=== PATIENT | male | born 1945 | race Caucasian/White ===

== ENCOUNTER 2017-01-02 09:00 | Outpatient (RCR) | payer MEDICARE, OTHER ==
[~2017-01-02 09:00] MED LIST: ADVAIR 250/28 DISKU1 IH; ALAVERT10 M1 PO; ALBUTEROL0.83 MG/ML IH; ALLEGRA180 MG PO; ALLEGRA30 MG PO; AMOXICILLIN875 MG PO; ASPIRIN 32325 MG/TAB PO; ASPIRIN 81M81 MG/TA2 PO; ASPIRIN E.C. 8181 MG PO; ATENOLOL25 MG PO; BENADRYL25 M2 PO; BYSTOLIC5 MG PO; CALCIUM600 M2 PO; FLOVENT 110MCG7.9 GM IH; HYTRIN 2MG CAPSU2 MG PO; IMDUR 60MG60 MG/TAB PO; ISOSORBIDE MONO30 M1 PO; K-DUR 2020 MEQ PO; LEVAQUIN 5500 MG/TA1 PO; LIPITOR 10MG10 MG PO; LIPITOR 40MG TA40 MG PO; MULTIPLE VITAMI1 TA1 PO; NEXIUM40 MG PO; NITROSTAT0.4 MG/TAB SL; NORVASC 10MG10 MG PO; NORVASC 5MG5 MG/TAB PO; NORVASC2.5 MG PO; PLAVIX 75MG TAB75 MG PO; PREDNISONE10 MG PO; PROVENTIL0.09 MG/A1 IH; RELION VEN0.09 MG/Ac IH; RT ADVAIR 228 DISKUS IH; RT SPIRIVA18 MCG IH; SINGULAIR 110 MG/TAB PO; SINGULAIR10 MG PO; SODIUM BICARB PO; SPIRIVA18 MCG IH; SPORANOX100 MG PO; ST. JOSEPH81 M2 PO; TENORMIN 2525 MG/TAB PO; TOPROL XL 25MG25 MG PO; TRIAMTERENE/HCT1 TAB PO; TYLENOL 325MG325 MG PO; VIAGRA100 MG PO; ZYRTEC 10MG10 MG PO
== END 2017-01-02 12:00 | disposition home or self-care (01) ==
LOC: WSPT 09:00 → WSC 09:00
DX: M54.5 Low back pain (principal)
CPT/HCPCS: G8978-GP; G8979-GP; G8980-GP

== ENCOUNTER → 2018-01-07 | Outpatient (CLI) | payer MEDICARE, OTHER ==
[2018-01-07 11:23] LABS: BASO % 0.1 % (0.0-2.0); EOS % 0.5 % (0-4.0); HEMATOCRIT 39.6 % (42.0-52.0); HEMOGLOBIN 13.5 g/dl (13.5-18.0); LYMPH % 12.9 % (20.0-51.0); MEAN CELL VOLUME 96 fl (80.0-100.0); MEAN CORPUSCULAR HEMOGLOBIN 33 pg (27.0-31.0); MEAN CORPUSCULAR HGB CONC 34 g/dl (33.0-37.0); MEAN PLATELET VOLUME 11.6 fl (7.4-10.4); MONO # 0.4 (0.1-0.6); MONO % 5.8 % (1.7-9.3); PLATELET COUNT 119 K/mm3 (130-400); RED BLOOD COUNT 4.11 M/mm3 (4.20-5.60); REDCELL DISTRIBUTION WIDTH-CV 13.3 % (11.5-14.5)
[2018-01-07 11:44] LABS: BILIRUBIN,TOTAL 0.5 mg/dL (0.0-1.0); CALCIUM 9.1 mg/dL (8.4-10.2); CREATININE, serum 0.91 mg/dL (0.66-1.25); POTASSIUM 4.2 mmol/L (3.4-5.0); TOTAL PROTEIN 7.2 gm/dL (6.4-8.2)
== END ==
LOC: COL.LAB 10:57
PROVIDERS: Nurse Practitioner Family
DX: J44.1 Chronic obstructive pulmonary disease with (acute) exacerbation (principal)

== ENCOUNTER → 2018-05-13 | Outpatient (CLI) | payer MEDICARE, OTHER ==
[2018-05-13 13:49] LABS: BASO % 0.3 % (0.0-2.0); EOS # 0.2 (0.0-0.7); EOS % 2.9 % (0-4.0); GRAN # 3.7 (1.4-6.5); GRAN % 58.8 % (42.2-75.2); HEMATOCRIT 41.4 % (42.0-52.0); HEMOGLOBIN 14.2 g/dl (13.5-18.0); LYMPH # 1.8 (1.2-3.4); LYMPH % 28.4 % (20.0-51.0); MEAN CELL VOLUME 96 fl (80.0-100.0); MEAN CORPUSCULAR HEMOGLOBIN 33 pg (27.0-31.0); MEAN CORPUSCULAR HGB CONC 34 g/dl (33.0-37.0); MEAN PLATELET VOLUME 12.3 fl (7.4-10.4); MONO # 0.6 (0.1-0.6); MONO % 9.4 % (1.7-9.3); PLATELET COUNT 157 K/mm3 (130-400); RED BLOOD COUNT 4.31 M/mm3 (4.20-5.60); REDCELL DISTRIBUTION WIDTH-CV 12.1 % (11.5-14.5)
[2018-05-13 14:00] LABS: ALANINE AMINOTRANSFERASE 26 U/L (21-72); ALBUMIN 4.3 gm/dL (3.5-5.0); ALKALINE PHOSPHATASE 81 U/L (50-136); AMYLASE 73 U/L (30-110); ANION GAP 11 mmol/L (7-16); AST,SGOT 27 U/L (15-37); BILIRUBIN,TOTAL 0.4 mg/dL (0.0-1.0); BLOOD UREA NITROGEN 21 mg/dL (9-20); CALCIUM 9.1 mg/dL (8.4-10.2); CARBON DIOXIDE 29 mmol/L (22-30); CHLORIDE 98 mmol/L (98-107); CREATININE, serum 0.85 mg/dL (0.66-1.25); GLUCOSE 89 mg/dL (74-106); LIPASE 50 U/L (23-300); POTASSIUM 4.4 mmol/L (3.4-5.0); SODIUM 138 mmol/L (137-145); TOTAL PROTEIN 7.4 gm/dL (6.4-8.2)
[2018-05-13 14:01] LABS: C-REACTIVE PROTEIN < 0.5 mg/dL (0.0-0.9)
[2018-05-13 14:16] LABS: ERYTHROCYTE SEDIMENTATION RATE 7 mm/hr (0-30)
== END ==
LOC: COL.LAB 11:34
PROVIDERS: Family Medicine
DX: R10.30 Lower abdominal pain, unspecified (principal)

== ENCOUNTER → 2018-05-13 | Outpatient (CLI) | payer MEDICARE, OTHER | LOC: COL.RAD 13:44 | DX: R10.30 Lower abdominal pain, unspecified (principal); Z98.890 Other specified postprocedural states | CPT/HCPCS: Q9967 ==

== ENCOUNTER → 2019-01-29 | Outpatient (CLI) | payer MEDICARE, OTHER | LOC: MHCPAIN 07:46 | DX: G89.29 Other chronic pain (principal); M47.817 Spondylosis without myelopathy or radiculopathy, lumbosacral region; M54.16 Radiculopathy, lumbar region; M53.3 Sacrococcygeal disorders, not elsewhere classified; M96.1 Postlaminectomy syndrome, not elsewhere classified | CPT/HCPCS: G0463 ==

== ENCOUNTER → 2019-01-30 | Outpatient (CLI) | payer MEDICARE, OTHER ==
[2019-01-30 12:28] LABS: HEMOGLOBIN 14.8 g/dl (13.5-18.0); MEAN CELL VOLUME 98 fl (80.0-100.0); MEAN CORPUSCULAR HEMOGLOBIN 33 pg (27.0-31.0); MEAN CORPUSCULAR HGB CONC 34 g/dl (33.0-37.0); MEAN PLATELET VOLUME 12.1 fl (7.4-10.4); PLATELET COUNT 167 K/mm3 (130-400); RED BLOOD COUNT 4.51 M/mm3 (4.20-5.60); REDCELL DISTRIBUTION WIDTH-CV 12.6 % (11.5-14.5)
[2019-01-30 12:37] LABS: CALCIUM 9.5 mg/dL (8.4-10.2); CREATININE, serum 1.12 (0.66-1.25); POTASSIUM 4.8 mmol/L (3.4-5.0)
== END ==
LOC: COL.RAD 11:54
PROVIDERS: Internal Medicine Interventional Cardiology
DX: J18.9 Pneumonia, unspecified organism (principal)

== ENCOUNTER → 2019-02-06 | Outpatient (CLI) | payer MEDICARE, OTHER | LOC: MHCPAIN 08:26 | DX: M47.817 Spondylosis without myelopathy or radiculopathy, lumbosacral region (principal); M54.16 Radiculopathy, lumbar region | CPT/HCPCS: J1100; Q9967 ==

== ENCOUNTER → 2019-02-12 | Outpatient (CLI) | payer MEDICARE, OTHER | LOC: COL.VAS 07:23 | DX: M71.22 Synovial cyst of popliteal space [Baker], left knee (principal); M79.89 Other specified soft tissue disorders ==

== ENCOUNTER → 2019-02-18 | Outpatient (CLI) | payer MEDICARE, OTHER | LOC: MHCPAIN 10:15 | DX: G89.29 Other chronic pain (principal); M47.817 Spondylosis without myelopathy or radiculopathy, lumbosacral region; M54.16 Radiculopathy, lumbar region; M53.3 Sacrococcygeal disorders, not elsewhere classified; M96.1 Postlaminectomy syndrome, not elsewhere classified | CPT/HCPCS: G0463 ==

== ENCOUNTER → 2019-02-18 | Outpatient (CLI) | payer MEDICARE, OTHER | LOC: COL.RAD 10:49 | DX: M43.16 Spondylolisthesis, lumbar region (principal); M96.1 Postlaminectomy syndrome, not elsewhere classified; M47.816 Spondylosis without myelopathy or radiculopathy, lumbar region; I70.0 Atherosclerosis of aorta ==

== ENCOUNTER → 2019-02-24 | Outpatient (CLI) | payer MEDICARE, OTHER | LOC: MHCPAIN 10:32 | DX: M47.817 Spondylosis without myelopathy or radiculopathy, lumbosacral region (principal); M54.16 Radiculopathy, lumbar region | CPT/HCPCS: J1100; Q9967 ==

== ENCOUNTER 2019-02-26 13:45 | Outpatient (RCR) | payer MEDICARE, OTHER | END 2019-02-26 14:53 | disposition home or self-care (01) | LOC: WSPT 13:45 | DX: M54.16 Radiculopathy, lumbar region (principal); Z98.890 Other specified postprocedural states ==

== ENCOUNTER → 2019-03-11 | Outpatient (CLI) | payer MEDICARE, OTHER | LOC: MHCPAIN 07:51 | DX: G89.29 Other chronic pain (principal); M47.817 Spondylosis without myelopathy or radiculopathy, lumbosacral region; M54.16 Radiculopathy, lumbar region; M53.3 Sacrococcygeal disorders, not elsewhere classified; M96.1 Postlaminectomy syndrome, not elsewhere classified | CPT/HCPCS: G0463 ==

== ENCOUNTER → 2019-03-13 | Outpatient (CLI) | payer MEDICARE, OTHER | LOC: MHCPAIN 13:30 | DX: M47.817 Spondylosis without myelopathy or radiculopathy, lumbosacral region (principal); M54.16 Radiculopathy, lumbar region | CPT/HCPCS: J1100; Q9967 ==

== ENCOUNTER → 2019-03-19 | Outpatient (CLI) | payer MEDICARE, OTHER | LOC: MHCPAIN 08:03 | DX: G89.29 Other chronic pain (principal); M47.817 Spondylosis without myelopathy or radiculopathy, lumbosacral region; M54.16 Radiculopathy, lumbar region; M53.3 Sacrococcygeal disorders, not elsewhere classified; M96.1 Postlaminectomy syndrome, not elsewhere classified | CPT/HCPCS: G0463 ==

== ENCOUNTER 2019-03-25 09:59 | Outpatient (CLI) | payer MEDICARE, OTHER ==
[2019-03-25] VITALS (8 sets, daily range): BP systolic 113–136; BP diastolic 62–88; PULSE 60–78
[~2019-03-25] VITALS: Ht 172.7 cm; Wt 74.7 kg
[2019-03-25] MEDS ORDERED: NEURONTIN300 MG/CAP PO (10:15)
[2019-03-25] MEDS ORDERED: GLUCOPHAGE500 MG/TAB PO (10:15)
--- NOTE | 2019-03-25 13:38 | NUR ---
Discharge instructions given to pt.pt verbalizes understanding.Pt escorted out by this nurse.
== END 2019-03-25 14:10 | disposition home or self-care (01) ==
LOC: COL.RAD 09:59
DX: M51.27 Other intervertebral disc displacement, lumbosacral region (principal); M46.86 Other specified inflammatory spondylopathies, lumbar region; Z98.1 Arthrodesis status
CPT/HCPCS: Q9965

== ENCOUNTER → 2019-05-27 | Outpatient (CLI) | payer MEDICARE, OTHER ==
[~2019-05-27] MED LIST changes: +GLUCOPHAGE500 MG/TAB PO; +NEURONTIN300 MG/CAP PO
== END ==
LOC: MHCPAIN 08:18
DX: G89.29 Other chronic pain (principal); M47.817 Spondylosis without myelopathy or radiculopathy, lumbosacral region; M54.16 Radiculopathy, lumbar region; M53.3 Sacrococcygeal disorders, not elsewhere classified; M96.1 Postlaminectomy syndrome, not elsewhere classified
CPT/HCPCS: G0463

== ENCOUNTER 2019-11-14 20:09 | Emergency (ER) | payer MEDICARE, OTHER ==
[~2019-11-14] VITALS: Ht 172.7 cm; Wt 89.1 kg
[2019-11-14 21:39] VITALS: BP 138/78; PULSE 79; TEMP 98.4
== END 2019-11-14 21:37 | disposition home or self-care (01) ==
LOC: COL.ER 20:09
DX: R04.0 Epistaxis (principal); Z79.02 Long term (current) use of antithrombotics/antiplatelets; Z79.51 Long term (current) use of inhaled steroids; Z79.84 Long term (current) use of oral hypoglycemic drugs; Z79.82 Long term (current) use of aspirin

== ENCOUNTER 2019-11-16 03:44 | Emergency (ER) | payer MEDICARE, OTHER ==
[~2019-11-16] VITALS: Ht 172.7 cm; Wt 89.1 kg
[2019-11-16 04:11] VITALS: BP 127/87; TEMP 98
[2019-11-16 06:05] VITALS: PULSE 67
== END 2019-11-16 06:05 | disposition home or self-care (01) ==
LOC: COL.ER 03:44
DX: R04.0 Epistaxis (principal); I25.10 Atherosclerotic heart disease of native coronary artery without angina pectoris; I10 Essential (primary) hypertension; J44.9 Chronic obstructive pulmonary disease, unspecified; Z79.02 Long term (current) use of antithrombotics/antiplatelets; Z79.84 Long term (current) use of oral hypoglycemic drugs; Z79.82 Long term (current) use of aspirin; Z79.51 Long term (current) use of inhaled steroids

== ENCOUNTER 2019-11-19 20:50 | Emergency (ER) | payer MEDICARE, OTHER ==
[~2019-11-19] VITALS: Ht 172.7 cm; Wt 88.2 kg
[2019-11-19 23:00] VITALS: BP 133/88; PULSE 76; TEMP 98.4
== END 2019-11-19 23:15 | disposition home or self-care (01) ==
LOC: COL.ER 20:50
DX: R04.0 Epistaxis (principal)

== ENCOUNTER 2019-12-03 15:28 | Inpatient (IN) | payer MEDICARE, OTHER ==
[2019-12-03] VITALS (51 sets, daily range): BP systolic 143; BP diastolic 87; PULSE 104; TEMP 97.5; O2SAT 66–100
[~2019-12-03] VITALS: Ht 172.7 cm; Wt 90.0 kg
[2019-12-03 16:15] LABS: BASO % 0.7 % (0.0-2.0); EOS # 0.2 (0.0-0.7); EOS % 4.3 % (0-4.0); GRAN # 2.2 (1.4-6.5); GRAN % 49.6 % (42.2-75.2); HEMATOCRIT 43.5 % (42.0-52.0); HEMOGLOBIN 14.4 g/dl (13.5-18.0); LYMPH # 1.4 (1.2-3.4); LYMPH % 31.6 % (20.0-51.0); MEAN CELL VOLUME 98 fl (80.0-100.0); MEAN CORPUSCULAR HEMOGLOBIN 32 pg (27.0-31.0); MEAN CORPUSCULAR HGB CONC 33 g/dl (33.0-37.0); MEAN PLATELET VOLUME 12.1 fl (7.4-10.4); MONO # 0.6 (0.1-0.6); MONO % 13.6 % (1.7-9.3); PLATELET COUNT 188 K/mm3 (130-400); RED BLOOD COUNT 4.44 M/mm3 (4.20-5.60); REDCELL DISTRIBUTION WIDTH-CV 13.2 % (11.5-14.5)
[2019-12-03 16:28] LABS: ALANINE AMINOTRANSFERASE 19 U/L (4-49); ALBUMIN 4.9 gm/dL (3.5-5.0); ALKALINE PHOSPHATASE 110 U/L (50-136); ANION GAP 14 mmol/L (7-16); AST,SGOT 27 U/L (15-37); BILIRUBIN,TOTAL 0.6 mg/dL (0.0-1.0); BLOOD UREA NITROGEN 15 mg/dL (9-20); CALCIUM 9.3 mg/dL (8.4-10.2); CARBON DIOXIDE 24 mmol/L (22-30); CHLORIDE 103 mmol/L (98-107); CREATININE, serum 0.99 (0.66-1.25); GLUCOSE 116 mg/dL (74-106); POTASSIUM 4.3 mmol/L (3.4-5.0); SODIUM 140 mmol/L (137-145); TOTAL PROTEIN 8.4 gm/dL (6.4-8.2)
[2019-12-03 16:43] LABS: TROPONIN-I < 0.012 ng/mL (0.000-0.035)
[2019-12-03 19:44] LABS: ARTERIAL BLD GAS O2 SATURATION 91.8 % (92-100); ARTERIAL BLD GAS TCO2 CT 18.8; ARTERIAL BLOOD GAS BASE EXCESS -4.9 (-2-2); ARTERIAL BLOOD GAS HCO3 17.9 meq/L (22-26); ARTERIAL BLOOD GAS PCO2 27.6 mmHg (35-45); ARTERIAL BLOOD GAS PO2 62.5 mmHg (80-100); ARTERIAL BLOOD GAS pH 7.43 (7.35-7.45)
--- NOTE | 2019-12-03 20:19 | NUR ---
Report called over by KEYLA Cervantes in the ED. Patient will be brought over soon.
--- NOTE | 2019-12-03 20:36 | NUR ---
Patient arrives at this time via ED cart. Patient transfer self to unit bed via stand and pivot. Patient attached to unit monitoring equipment. Assessment complete. Patient's respiratory Rate is increased and patient has audible wheezes/stridor. He is alert and oriented. no complaints of pain. Patient states that he doesnt feel short of breath, just anxious after the albuterol treatment. Lungs have wheezes in all bledsoe, and stridor tracheally. HR and rhythm are regular with normal S1 and S2, patient is intermittently tachycardic in the low 100's. Bowel sounds active x4. No edema noted. Oriented patient and family to unit and room. Call light within reach. Patient has no further needs at this time. Will continue to monitor. Siderails up x2.
[2019-12-03] MEDS ORDERED: KLOR-CON M2020 MEQ PO (21:10)
[2019-12-03] MEDS ORDERED: NITROSTAT0.4 MG/TAB SL (21:11)
[2019-12-03] MEDS ORDERED: VIAGRA100 M1 PO (21:12)
[2019-12-03] MEDS ORDERED: MAXZIDE-25MG TA1 TAB PO (21:16)
[2019-12-04] VITALS (1047 sets, daily range): BP systolic 99–158; BP diastolic 48–109; PULSE 82–102; TEMP 97.6–98.7; O2SAT 80–100
--- NOTE | 2019-12-04 | NUR ---
Patient sounds much better at this time. some basilar wheezes, but respiratory rate has improved, patient is much less anxious and is resting comfortably. No further needs. Vitals remain stable. Will continue to monitor.
--- NOTE | 2019-12-04 04:00 | NUR ---
Patient awake at this time and watching tv. No current needs. patient's respiratory status continues to improve. Has no further needs at this time. Vitals are stable. Will continue to monitor. Call light within reach.
[2019-12-04 06:49] LABS: GRAN % 87.2 % (42.2-75.2); LYMPH # 0.4 (1.2-3.4); LYMPH % 10.8 % (20.0-51.0); MEAN CELL VOLUME 98 fl (80.0-100.0); MEAN CORPUSCULAR HEMOGLOBIN 33 pg (27.0-31.0); MEAN CORPUSCULAR HGB CONC 34 g/dl (33.0-37.0); MEAN PLATELET VOLUME 12.1 fl (7.4-10.4); MONO # 0.1 (0.1-0.6); MONO % 1.7 % (1.7-9.3); PLATELET COUNT 155 K/mm3 (130-400); RED BLOOD COUNT 3.76 M/mm3 (4.20-5.60); REDCELL DISTRIBUTION WIDTH-CV 13.4 % (11.5-14.5)
[2019-12-04 06:50] LABS: HEMOGLOBIN 12.4 g/dl (13.5-18.0)
[2019-12-04 06:59] LABS: CALCIUM 8.7 mg/dL (8.4-10.2); CREATININE, serum 0.98 (0.66-1.25)
--- NOTE | 2019-12-04 08:00 | NUR ---
Shift assessment complete at this time. Plan of care reviewed at bedside with patient. Additional time taken to address any other needs or concerns. Vitals stable at this time. Pt denies pain or any other discomfort. Bed in low position, call light within reach, will continue to monitor.
--- NOTE | 2019-12-04 09:45 | NUR ---
formula room worker met with patient to discuss discharge planning. Patient states he lives with spouse in [place] and they are both independent with their activities of daily living, including driving. Patient states he does not have oxygen or bi/Cpap machine at home. Patient states the last time he was hospitalized was a year ago with back surgery. Patient states he primary care provider is Dr Shaheen Short and that he obtains medications, without difficulty, at [employer] and a local store in [place]. Patient states he has made advance directives and worker encouraged him to bring them to the hospital.
--- NOTE | 2019-12-04 12:00 | NUR ---
Pt resting comfortably in bed. Denies pain or any other discomfort. Vitals stable at this time. Pt denies pain or any other discomfort. Bed in low position, call light within reach, will continue to monitor.
--- NOTE | 2019-12-04 16:00 | NUR ---
Pt resting comfortably in bed. Denies pain or any other discomforts. Pt denies pain or any other discomforts. Bed in low position, call light within reach, will continue to monitor.
--- NOTE | 2019-12-04 19:07 | NUR ---
Bedside report received from KEYLA Mauro
--- NOTE | 2019-12-04 19:15 | NUR ---
Bedside report given to KEYLA Carr.
--- NOTE | 2019-12-04 20:00 | NUR ---
Patient resting in bed watching TV. No complaints of pain or SOA. Resting comfortably on room air. Assessment complete. Lungs are clear in the upper lobes with diminished bases that also have some quiet expiratory wheezes. All other findings remain the same as previous exams. Assisted patient with getting up to brush teeth and freshen up. Patient moves independently and performs tasks himself, only helped with removing the extra wires. Patient returns to bed. Offered recliner, but patient declines. No further needs at this time. Will continue to monitor. Call light within reach.
[2019-12-05] VITALS (334 sets, daily range): BP systolic 102–144; BP diastolic 49–93; PULSE 92–96; TEMP 97.5–98.4; O2SAT 84–100
--- NOTE | 2019-12-05 05:59 | NUR ---
NORMA SCHWARTZ MD PUT BIPAP ORDERS IN FOR PATIENT. HOWEVER, NURSE SAYS IT WAS A CPAP ORDER. RT WAS UNCLEAR OF WHAT DOCTOR WANTED THEREFORE NOTHING WAS BOUGHT INTO THE PT ROOM AND PT DOES NOT WEAR A CPAP OR BIPAP AT HOME. PT WAS FINE ALL NIGHT AND IN NO DISTRESS ALL NIGHT.
--- NOTE | 2019-12-05 06:15 | NUR ---
Report called to medical floor. Patient's belongings gathered and patient taken to 315 via wheelchair.
[2019-12-05 08:27] LABS: BASO % 0.1 % (0.0-2.0); GRAN # 13.1 (1.4-6.5); HEMOGLOBIN 12.4 g/dl (13.5-18.0); LYMPH # 0.7 (1.2-3.4); LYMPH % 5.1 % (20.0-51.0); MEAN CELL VOLUME 99 fl (80.0-100.0); MEAN CORPUSCULAR HEMOGLOBIN 33 pg (27.0-31.0); MEAN CORPUSCULAR HGB CONC 34 g/dl (33.0-37.0); MEAN PLATELET VOLUME 12.3 fl (7.4-10.4); MONO # 0.6 (0.1-0.6); MONO % 3.8 % (1.7-9.3); PLATELET COUNT 140 K/mm3 (130-400); RED BLOOD COUNT 3.74 M/mm3 (4.20-5.60); REDCELL DISTRIBUTION WIDTH-CV 13.9 % (11.5-14.5)
[2019-12-05 08:36] LABS: CREATININE, serum 0.82 (0.66-1.25); POTASSIUM 3.7 mmol/L (3.4-5.0)
--- NOTE | 2019-12-05 09:38 | NUR ---
Assessment complete. Patient resting but aroused upon entry. States he feels much better today and that he is hoping to go home. Alert and oriented x4. IV site is CD&I, flushed well. Denies pain of any kind. Denies SOB and chest pain. Medications provided as ordered. No further needs were expressed at this time. Call light is in reach.
[2019-12-05] MEDS ORDERED: TAMIFLU 75MG75 MG PO (09:43)
[2019-12-05] MEDS ORDERED: PREDNISONE10 MG PO (09:44)
--- NOTE | 2019-12-05 13:30 | NUR ---
Pt left the floor at this time. Discharge istructions discussed.
== END 2019-12-05 14:03 | disposition home or self-care (01) | DRG 193 ==
LOC: COL.ER 15:28 → ICU 19:08 → MEDICAL 12-05 07:00
PROVIDERS: Emergency Medicine; Nurse Practitioner Family; ADMIT Hospitalist
DX: J10.1 Influenza due to other identified influenza virus with other respiratory manifestations (principal); J96.01 Acute respiratory failure with hypoxia; J44.1 Chronic obstructive pulmonary disease with (acute) exacerbation; K21.9 Gastro-esophageal reflux disease without esophagitis; I25.10 Atherosclerotic heart disease of native coronary artery without angina pectoris; E78.5 Hyperlipidemia, unspecified; E11.9 Type 2 diabetes mellitus without complications; I10 Essential (primary) hypertension; Z95.5 Presence of coronary angioplasty implant and graft; Z87.891 Personal history of nicotine dependence
CPT/HCPCS: 99222-AI; 99223-AI; 99233-AI; 99239; A9284; J1815; J2930; J7030

== ENCOUNTER → 2020-04-02 | Outpatient (CLI) | payer MEDICARE, OTHER ==
[~2020-04-02] MED LIST changes: +KLOR-CON M2020 MEQ PO; +MAXZIDE-25MG TA1 TAB PO; +TAMIFLU 75MG75 MG PO; +VIAGRA100 M1 PO
== END ==
LOC: COL.VAS 14:02
DX: Z13.6 Encounter for screening for cardiovascular disorders (principal); R60.0 Localized edema

== ENCOUNTER 2020-04-23 13:19 | Emergency (ER) | payer MEDICARE, OTHER ==
[~2020-04-23] VITALS: Ht 172.7 cm; Wt 89.1 kg
[2020-04-23 13:23] VITALS: TEMP 98.4
[2020-04-23] MEDS ORDERED: CEPHALEXIN500 M1 PO (13:44)
[2020-04-23 14:02] VITALS: BP 131/101; PULSE 78
== END 2020-04-23 14:00 | disposition home or self-care (01) ==
LOC: COL.ER 13:19
DX: R04.0 Epistaxis (principal)

== ENCOUNTER 2020-04-24 13:53 | Emergency (ER) | payer MEDICARE, OTHER ==
[~2020-04-24] VITALS: Ht 152.4 cm; Wt 89.1 kg
[~2020-04-24 13:53] MED LIST changes: +CEPHALEXIN500 M1 PO
[2020-04-24 13:57] VITALS: TEMP 97.5
[2020-04-24 14:45] VITALS: BP 148/77; PULSE 73
== END 2020-04-24 14:45 | disposition home or self-care (01) ==
LOC: COL.ER 13:53
DX: R04.0 Epistaxis (principal); Z79.82 Long term (current) use of aspirin; Z79.84 Long term (current) use of oral hypoglycemic drugs

== ENCOUNTER 2020-07-26 08:45 | Inpatient (IN) | payer MEDICARE, OTHER ==
[~2020-07-26] VITALS: Ht 172.7 cm; Wt 98.5 kg
[2020-07-26 09:29] LABS: BASO % 0.2 % (0.0-2.0); EOS % 0.1 % (0-4.0); GRAN # 5.5 (1.4-6.5); GRAN % 67.8 % (42.2-75.2); HEMOGLOBIN 14.3 g/dl (13.5-18.0); LYMPH # 1.5 (1.2-3.4); LYMPH % 18.4 % (20.0-51.0); MEAN CELL VOLUME 97 fl (80.0-100.0); MEAN CORPUSCULAR HEMOGLOBIN 33 pg (27.0-31.0); MEAN CORPUSCULAR HGB CONC 34 g/dl (33.0-37.0); MEAN PLATELET VOLUME 12.3 fl (7.4-10.4); MONO # 1.1 (0.1-0.6); MONO % 13.3 % (1.7-9.3); PLATELET COUNT 142 K/mm3 (130-400); RED BLOOD COUNT 4.32 M/mm3 (4.20-5.60); REDCELL DISTRIBUTION WIDTH-CV 12.2 % (11.5-14.5)
[2020-07-26 09:38] LABS: ALBUMIN 4.6 gm/dL (3.5-5.0); BILIRUBIN,TOTAL 0.9 mg/dL (0.0-1.0); CALCIUM 8.9 mg/dL (8.4-10.2); CREATININE, serum 0.87 (0.66-1.25); POTASSIUM 3.5 mmol/L (3.4-5.0); TOTAL PROTEIN 7.9 gm/dL (6.4-8.2)
[2020-07-26] MEDS ORDERED: PREDNISONE20 MG PO (11:13)
[2020-07-26] MEDS ORDERED: ZITHROMAX Z PA250 MG PO (11:13)
[2020-07-26 16:38] VITALS: BP 120/68; PULSE 89; TEMP 98.1
[2020-07-26 16:41] VITALS: BP 120/68; PULSE 89; TEMP 98.1
[2020-07-26] MEDS ORDERED: PLAVIX 75MG TAB75 MG PO (16:56)
--- NOTE | 2020-07-26 18:19 | NUR ---
Pt up to room 319, A&O, independent in room, on 1-2L NC as needed. Pt has RAC INT IV that flushes well, no issues. No edema, HR tachy, reg rhythmm, BS active X 4. Pt has audible insp/exp wheezing when exacerbated by coughing. After coughing subsides, pt has exp wheezes in all bledsoe. Pulses strong bilaterally, no edema. Admission, allergies, pharmacy completed. Pt unaware of home medications, states his or daughter will bring list. RVP pending. No further needs expressed at this time. Denies needs for pain medication. Only c/o pain to chest and abdomen when having coughing spells.
--- NOTE | 2020-07-26 19:10 | NUR ---
Pt was sitting on side of his bed when this nurse went for a bedside handover. Pt looks rested, no further needs, will keep monitoring.
--- NOTE | 2020-07-26 19:16 | NUR ---
Pt family member brought med list, med rec completed, list returned to patient.
[2020-07-26] MEDS ORDERED: VENTOLIN0.09 MG IH (19:17)
[2020-07-26 19:55] VITALS: BP 113/67; PULSE 81; TEMP 97.5
[2020-07-26 23:59] VITALS: BP 121/67; PULSE 80; TEMP 98.4
[2020-07-27] VITALS (7 sets, daily range): BP systolic 114–132; BP diastolic 53–74; PULSE 89–103; TEMP 97.7–98.4
--- NOTE | 2020-07-27 00:47 | NUR ---
Pt assessment completed and charted, alert, oriented, roomair. Med provided as per NOV, tolerated well. Pt is settled on his bed, call light is on reach. No further needs at this time. Will keep monitoring.
--- NOTE | 2020-07-27 06:05 | NUR ---
Pt had an uneventful night, slept through out the night. No further needs at this time.
[2020-07-27 06:42] LABS: HEMATOCRIT 39.3 % (42.0-52.0); HEMOGLOBIN 13.5 g/dl (13.5-18.0); MEAN CELL VOLUME 97 fl (80.0-100.0); MEAN CORPUSCULAR HEMOGLOBIN 33 pg (27.0-31.0); MEAN CORPUSCULAR HGB CONC 34 g/dl (33.0-37.0); MEAN PLATELET VOLUME 12.6 fl (7.4-10.4); PLATELET COUNT 136 K/mm3 (130-400); RED BLOOD COUNT 4.04 M/mm3 (4.20-5.60); REDCELL DISTRIBUTION WIDTH-CV 12.1 % (11.5-14.5)
[2020-07-27 06:59] LABS: CALCIUM 8.8 mg/dL (8.4-10.2); CREATININE, serum 0.83 (0.66-1.25); MAGNESIUM 1.7 mg/dL (1.6-2.3); POTASSIUM 3.8 mmol/L (3.4-5.0)
[2020-07-27 07:22] LABS: BAND 15 % (0-10); LYMPHOCYTE 5 % (20.0-51.0); NEUTROPHILS 79 % (42.0-75.2); PLATELET ESTIMATE NORMAL (NORMAL)
--- NOTE | 2020-07-27 07:40 | NUR ---
Pt. alert, sitting up in bed. Assessment as chart O2 on @2L/nc. Breath sounds choarse in all field with wheezing. No shortness of breath noted. RT here for treatment. Pt. has non-productive vough. Telemetry on. Pt. denies c/o pain. INT to Rt. a.c. intact no redness.
--- NOTE | 2020-07-27 08:50 | NUR ---
Pt up to shower. Tolerates activity well. Telemetry back on after shower. O2 back on 2L/nc.
--- NOTE | 2020-07-27 09:53 | NUR ---
Pt assessment completed and charted, medications administered per nov. Pt A&O, independent in room, on 2L NC, HRRR, occasionally tachy. Pt denies any pain, chest pain, dizziness, N/V/D, numbness or tingling. Pt ambulating w/ PT well. BS active X4, RAC INT IV flushes w/o difficulty. Pt c/o SOB, exacerbated w/ coughing. Pt has dry cough, occasional coughing spells. Pulses strong bilaterally, no edema present. LS coarse and wheezing throughout all bledsoe.Pt tachypneic, shallow breathing after coughing fits, audible wheezing, labored breathing. After pt settles down, breating is slightly improved. No further needs expressed at this time.
--- NOTE | 2020-07-27 09:58 | NUR ---
Initial visit; Patient thanked Visual Basic Programmer for looking in on him and offering God's blessings and to keep him in Visual Basic Programmer's prayers.
--- NOTE | 2020-07-27 10:37 | NUR ---
SW met with the patient to discuss discharge plan. The patient lives in [place] with his , Vandana ([phone]). He reports independence with ADLs and does not have any DME. The patient's PCP is Dr. Cha Short and he receives his medications on [facility]. He reports no difficulties obtaining his meds. The patient does not have a DPOA-HC in EMR, but he states that he does have one completed and that it designates his . The patient plans to return home with his upon discharge. SOTERO contacted and reviewed the above information with the patient's , Vandana. Vandana confirmed the above information and states that she has no concerns about the patient returning back home. The patient is currently on 2 liters of oxygen. SW to continue to monitor.
--- NOTE | 2020-07-27 11:15 | NUR ---
Pt requesting "something for his cough", robitussin PRN administered per NOV. irena Gomez. No further needs at this time. Dry cough w/ occasional sputum produced.
--- NOTE | 2020-07-27 19:15 | NUR ---
Received report from Natasha. Seen patient awake, in bed. On O2 at 1lpm via NC. He denies pain. Call light within reach.
--- NOTE | 2020-07-27 20:59 | NUR ---
Patient ongoing breathing treatment. Jailene of RT put patient on room air as he was satting at 94%. Will monitor patient if we need to put him back on oxygen.
[2020-07-28 03:41] VITALS: BP 112/64; PULSE 93; TEMP 98.7
--- NOTE | 2020-07-28 04:00 | NUR ---
Patient asleep. Still on room air. Latest SPO2 is at 92%.
--- NOTE | 2020-07-28 06:35 | NUR ---
Patient had uneventful night. He denies pain. He tolerated room air. SPO2 at 92%. Call light within reach.
[2020-07-28 07:12] VITALS: BP 110/73; PULSE 89; TEMP 98
--- NOTE | 2020-07-28 07:12 | NUR ---
Pt. alert, laying down in bed. Assessment as chart. Breath sounds clear w/wheeze on expiration. No shortness of breath noted. Pt. has productive cough w/clear viscous sputum. Pt. c/o sore throat. Pt. stated water helps sore throat. INT to right a.c. intact no redness.
--- NOTE | 2020-07-28 08:24 | NUR ---
Pt assessment completed and charted. Medications administered per nov. Pt A&O, independent in room, on room air at this time, satting low 90s. Pt c/o some SOB, exhibits PATRICK, dry to productive cough present. pt requesting robitussin, states it helps some. Pt denies dizziness, N/V/D, chest pain, numbness or tingling, abdominal pain. RAC INT IV flushes w/o difficulty. No edema present, HRRR, pulses strong bilaterally, BS active. LS coarse w/ exp wheezes but has improved. NO further needs at this time, awaiting possible DC this afternoon.
[2020-07-28] MEDS ORDERED: MONODOX100 PO (08:39)
[2020-07-28] MEDS ORDERED: MEDROL 4MG DOSPA4 MG PO (08:40)
[2020-07-28] MEDS ORDERED: CHERATUSSIN AC120 ML PO (08:41)
--- NOTE | 2020-07-28 10:16 | NUR ---
Follow-up visit; Patient states he is doing well and plans to be discharged today. Yogesh thanked for stopping.
--- NOTE | 2020-07-28 10:40 | NUR ---
Pt discharge instructions discussed and reviewed w/ patient who verbalized understanding, all questions answered. RAC INT IV dc'd w/ cath tip intact, no issues. Pt escorted out by this nurse via ambulatory. NO issues.
== END 2020-07-28 10:47 | disposition home or self-care (01) | DRG 189 ==
LOC: COL.ER 08:45 → MEDICAL 11:53
PROVIDERS: Family Medicine; ADMIT Internal Medicine
DX: J96.01 Acute respiratory failure with hypoxia (principal); J44.1 Chronic obstructive pulmonary disease with (acute) exacerbation; I10 Essential (primary) hypertension; E78.5 Hyperlipidemia, unspecified; I25.10 Atherosclerotic heart disease of native coronary artery without angina pectoris; E11.9 Type 2 diabetes mellitus without complications; Z95.5 Presence of coronary angioplasty implant and graft; Z87.891 Personal history of nicotine dependence; Z79.84 Long term (current) use of oral hypoglycemic drugs; Z20.828 Contact with and (suspected) exposure to other viral communicable diseases
CPT/HCPCS: 99222-AI; 99232-AI; 99239; J1100; J1650; J1815; J2920; J7512

== ENCOUNTER 2020-10-01 12:04 | Inpatient (IN) | payer MEDICARE, OTHER ==
[~2020-10-01] VITALS: Ht 172.7 cm; Wt 91.8 kg
[~2020-10-01 12:04] MED LIST changes: +CHERATUSSIN AC120 ML PO; +MEDROL 4MG DOSPA4 MG PO; +MONODOX100 PO; +PREDNISONE20 MG PO; +VENTOLIN0.09 MG IH; +ZITHROMAX Z PA250 MG PO
[2020-10-26] VITALS (10 sets, daily range): BP systolic 110–138; BP diastolic 63–81; PULSE 61–87; TEMP 97.8–99
--- NOTE | 2020-10-26 07:00 | NUR ---
Accucheck of 89 reprorted to Kelly LUCERO and order to change IV fluids from NS to LR and done so.
[2020-10-26] MEDS ORDERED: NORVASC 5MG5 MG/TAB PO (07:14)
[2020-10-26] MEDS ORDERED: DYAZIDE 25 MG-31 CAP PO (07:16)
[2020-10-26] MEDS ORDERED: GLUCOPHAGE500 MG/TAB PO (07:25)
[2020-10-26] MEDS ORDERED: DALIRESP250 MCG PO (07:26)
[2020-10-26] MEDS ORDERED: EPIPEN 2-PAK1 MG/ML IM (07:27)
[2020-10-26] MEDS ORDERED: MULTIPLE VITAMI1 TA5 PO (07:41)
[2020-10-26] MEDS ORDERED: IRON TABLETS325 MG PO (07:42)
[2020-10-26] MEDS ORDERED: TOPROL XL 25MG25 MG PO (07:42)
--- NOTE | 2020-10-26 11:00 | NUR ---
returned to room from PACU per bed, alert and oreinted, IV infusing and placed on pump at 100ml/hr, dressing to right knee CD&I, O2 on at 2L/NC c/o burning pain to right knee, will medicate, provided water and tolerates well
--- NOTE | 2020-10-26 11:30 | NUR ---
resting with eyes closed when entered room, then arouses and continues to c/o burning to right knee
--- NOTE | 2020-10-26 11:45 | NUR ---
continues to c/o pain and burning and medicated with roxicodone 5mg po, denies urge to void
--- NOTE | 2020-10-26 12:45 | NUR ---
states pain in right knee is slowly getting better, is ready for something to eat and instructed on calling for lunch
--- NOTE | 2020-10-26 13:45 | NUR ---
had lunch and tolerated well, up and ambulated to bathroom and voided approx 500ml clear yellow urine, then assisted back to bed, states pain is right knee is still better
--- NOTE | 2020-10-26 15:56 | NUR ---
c/o pain 8/10 to right knee and medicated with roxicodone 10mg po
--- NOTE | 2020-10-26 18:52 | NUR ---
bedside shift report given to KEYLA Barnes
--- NOTE | 2020-10-26 21:00 | NUR ---
Pt. sitting up in bed at this time. Pt. is A&OX3, assessment complete. IV to lt. wrist patent, IV fluids infusing per orders. Pt. reports pain to rt. knee at a 7 on pain scale, giving pain meds per orders. Dressing to rt. knee CDI. Pt. denies further needs.
[2020-10-27] VITALS: BP 110/63; PULSE 81; TEMP 97.6
[2020-10-27 04:11] VITALS: BP 123/92; PULSE 78; TEMP 98.8
[2020-10-27 06:35] LABS: HEMOGLOBIN 11.4 g/dl (13.5-18.0)
[2020-10-27 06:37] LABS: HEMATOCRIT 34.2 % (42.0-52.0)
--- NOTE | 2020-10-27 07:00 | NUR ---
Sitting up in bed. Alert and oriented x4. Has ordered breakfast. Rates pain in right knee 4/10, describes as a deep ache. Remove bulky dressing from right knee. No discharge noted. Edges well approximated, no redness/swelling/discharge noted. Apply aquacel to site. Patient has josee root and scd's on bilaterally. Patient says that he hopes to go home later today but understands if he needs to stay another night. Denies additional needs at this time.
[2020-10-27 07:20] VITALS: BP 119/73; PULSE 79; TEMP 98.4
--- NOTE | 2020-10-27 08:39 | NUR ---
Patient having pain and wanted pain medication. KEYLA Deal, administers pain medication as prescribed.
--- NOTE | 2020-10-27 09:45 | NUR ---
Patient sitting up in chair with eyes open watching TV. Pain 3/10 in right knee. Patient says that he did okay with therapy but pain increased quite a bit. Per the patient PT was going to recommend that he stay one more night and patient agrees to this. Patient denies additional needs at this time.
--- NOTE | 2020-10-27 10:11 | NUR ---
Initial visit; Patient thanked Suspender Cutter for looking in on him and offering prayer and God's blessings.
[2020-10-27 10:15] VITALS: BP 114/85; PULSE 81; TEMP 99
--- NOTE | 2020-10-27 11:42 | NUR ---
Director [facility] met with the patient to complete intake. The patient lives in [place] with his . The patient denies DME use and is independent. The patient's PCP is Dr. Cha Short and patient receives medications from [facility] pharmacy. The patient does not have advanced directives in the EMR but states they are complete. The patient plans to return home at discharge with his providing transportation. There are no additional needs.
--- NOTE | 2020-10-27 12:23 | NUR ---
Patient sitting up in bed eating lunch. Rates pain 5/10 in right knee at this time and would like pain medication when due. Denies additional needs at this time.
--- NOTE | 2020-10-27 12:30 | NUR ---
Pain medication administered as prescribed. Patient denies needs at this time.
--- NOTE | 2020-10-27 13:36 | NUR ---
Patient ambulating in halls with PT. Pain at rest 3/10, with walking 4-5/10. Patient using restroom then will get in bed. Denies needs at this time.
[2020-10-27 15:39] VITALS: BP 125/72; PULSE 84; TEMP 98.1
--- NOTE | 2020-10-27 16:26 | NUR ---
Patient sitting in recliner. Rates pain in right knee 3/10, tolerable at this time, will let staff know when he needs pain medication. Patient assisted into bed at this time. Patient gait slow and steady. Able to transfer self and get leg in bed on own. Discuss visitor policy with the patient that will go into effect tomorrow, hours will be from [id number], only one visitor will be allowed per stay, and the visitor will have to stay they will not be allowed to come and go from the hospital. Patient says that he is hoping to go home tomorrow but he will list his Vandana as his visitor. Patient denies any additional needs at this time.
--- NOTE | 2020-10-27 17:03 | NUR ---
Rating pain 7/10 in right knee and would like pain medication. Administer pain medication as prescribed. Patient has ice pack to right knee as well. Denies additional needs.
--- NOTE | 2020-10-27 19:45 | NUR ---
Pt. sitting up in bed at this time. Pt. is A&OX3, assessment complete. INT to lt. wrist patent. Pt. reports pain to rt. knee at a 5 on pain scale. Pt. denies need for pain meds at this time, but would like them with evening meds. Will give per orders. Aquacell dressing to rt. knee CDI. Pt. denies further needs, call light within reach.
[2020-10-27 19:46] VITALS: BP 136/67; PULSE 88; TEMP 98.2
[2020-10-28 04:07] VITALS: BP 114/53; PULSE 85; TEMP 97.9
--- NOTE | 2020-10-28 06:40 | NUR ---
awake resting in bed, bedside shift report received from KEYLA Barnes
--- NOTE | 2020-10-28 08:00 | NUR ---
resting in bed, full assessment completed, see interventions for further info, denies needs at this time
[2020-10-28 08:04] VITALS: BP 125/74; PULSE 79; TEMP 98.3
--- NOTE | 2020-10-28 09:30 | NUR ---
therapy in to work with patient and assist with shower
[2020-10-28] MEDS ORDERED: NORCO 325 MG-7.1 TAB PO (10:08)
[2020-10-28] MEDS ORDERED: ASPI325T6 PO (10:08)
[2020-10-28] MEDS ORDERED: ROXICODONE 55 MG/TAB PO (10:09)
[2020-10-28] MEDS ORDERED: SENOKOT S 50 MG1 TAB PO (10:10)
[2020-10-28 11:40] VITALS: BP 112/62; PULSE 85; TEMP 97.5
--- NOTE | 2020-10-28 12:40 | NUR ---
discharge instructions given to patient, verbalizes understanding, bedside shift report given to KEYLA Fatima
--- NOTE | 2020-10-28 15:08 | NUR ---
Patient's INT removed and covered with band-aid. Assisted patient to the wheelchair and escorted patient to parking lot. Care transferred to patient's family at 14:00. Patient expressed appreaciaton of care provided.
== END 2020-10-28 14:00 | disposition home or self-care (01) | DRG 470 ==
LOC: INPTSU 10-26 06:07 → SURG 10-26 07:30 → JCC 10-26 11:00 → SURG 10-26 11:15 → JCC 10-28 14:00
PROVIDERS: ADMIT Orthopaedic Surgery
PROC: 0SRC0J9 Replacement of Right Knee Joint with Synthetic Substitute, Cemented, Open Approach (ICD-10-PCS; principal; 2020-10-26 07:30)
DX: M17.11 Unilateral primary osteoarthritis, right knee (principal); I25.10 Atherosclerotic heart disease of native coronary artery without angina pectoris; N40.0 Benign prostatic hyperplasia without lower urinary tract symptoms; J44.9 Chronic obstructive pulmonary disease, unspecified; I10 Essential (primary) hypertension; K21.9 Gastro-esophageal reflux disease without esophagitis; E11.59 Type 2 diabetes mellitus with other circulatory complications; D69.6 Thrombocytopenia, unspecified; M10.171 Lead-induced gout, right ankle and foot; T56.0X1D Toxic effect of lead and its compounds, accidental (unintentional), subsequent encounter; Z90.89 Acquired absence of other organs
CPT/HCPCS: A9284; C1776; J0690; J2250; J2405; J2704; J7030; J7120

== ENCOUNTER 2021-04-21 10:12 | Emergency (ER) | payer MEDICARE, OTHER ==
[~2021-04-21] VITALS: Ht 172.7 cm; Wt 88.2 kg
[~2021-04-21 10:12] MED LIST changes: +ASPI325T6 PO; +DALIRESP250 MCG PO; +DYAZIDE 25 MG-31 CAP PO; +EPIPEN 2-PAK1 MG/ML IM; +IRON TABLETS325 MG PO; +MULTIPLE VITAMI1 TA5 PO; +NORCO 325 MG-7.1 TAB PO; +ROXICODONE 55 MG/TAB PO; +SENOKOT S 50 MG1 TAB PO
[2021-04-21 10:21] VITALS: TEMP 97.6
[2021-04-21 11:09] LABS: HEMATOCRIT 40.8 % (42.0-52.0); HEMOGLOBIN 13.6 g/dl (13.5-18.0)
[2021-04-21] MEDS ORDERED: AMOXICILLIN 8751 TAB PO (12:40)
[2021-04-21 13:01] VITALS: BP 144/72; PULSE 71
== END 2021-04-21 13:03 | disposition home or self-care (01) ==
LOC: COL.ER 10:12 → MEDICAL 12:17 → COL.ER 12:17
PROVIDERS: Nurse Practitioner
DX: R04.0 Epistaxis (principal); I10 Essential (primary) hypertension; J44.9 Chronic obstructive pulmonary disease, unspecified; I25.10 Atherosclerotic heart disease of native coronary artery without angina pectoris; Z79.82 Long term (current) use of aspirin; Z79.899 Other long term (current) drug therapy

== ENCOUNTER 2021-05-15 09:21 | Emergency (ER) | payer MEDICARE, OTHER ==
[~2021-05-15] VITALS: Ht 172.7 cm; Wt 88.2 kg
[~2021-05-15 09:21] MED LIST changes: +AMOXICILLIN 8751 TAB PO
[2021-05-15 09:24] VITALS: TEMP 97.9
[2021-05-15] MEDS ORDERED: CEPHALEXIN500 M1 PO (13:05)
[2021-05-15] MEDS ORDERED: CATAPRES 0.1MG0.1 MG PO (13:06)
[2021-05-15 14:46] LABS: BASO % 0.1 % (0.0-2.0); GRAN # 7.4 (1.4-6.5); GRAN % 86.5 % (42.2-75.2); HEMATOCRIT 39.1 % (42.0-52.0); HEMOGLOBIN 13.5 g/dl (13.5-18.0); LYMPH # 0.7 (1.2-3.4); LYMPH % 8.2 % (20.0-51.0); MEAN CELL VOLUME 99 fl (80.0-100.0); MEAN CORPUSCULAR HEMOGLOBIN 34 pg (27.0-31.0); MEAN CORPUSCULAR HGB CONC 35 g/dl (33.0-37.0); MEAN PLATELET VOLUME 11.4 fl (7.4-10.4); MONO # 0.4 (0.1-0.6); PLATELET COUNT 205 K/mm3 (130-400); RED BLOOD COUNT 3.96 M/mm3 (4.20-5.60); REDCELL DISTRIBUTION WIDTH-CV 13.4 % (11.5-14.5)
[2021-05-15 15:02] LABS: ALBUMIN 4.4 gm/dL (3.5-5.0); BILIRUBIN,TOTAL 0.4 mg/dL (0.0-1.0); CALCIUM 8.8 mg/dL (8.4-10.2); CREATININE, serum 0.65 (0.66-1.25); POTASSIUM 4.5 mmol/L (3.4-5.0); TOTAL PROTEIN 7.5 gm/dL (6.4-8.2)
[2021-05-15 15:04] LABS: PROTHROMBIN TIME 11.5 SECONDS (9.7-12.8)
[2021-05-15 16:21] VITALS: BP 150/92; PULSE 86
== END 2021-05-15 16:21 | disposition home or self-care (01) ==
LOC: COL.ER 09:21
PROVIDERS: Emergency Medicine
DX: R04.0 Epistaxis (principal); I10 Essential (primary) hypertension; J44.9 Chronic obstructive pulmonary disease, unspecified; I25.10 Atherosclerotic heart disease of native coronary artery without angina pectoris; Z87.891 Personal history of nicotine dependence; Z79.82 Long term (current) use of aspirin; Z79.899 Other long term (current) drug therapy
CPT/HCPCS: J0360; J2270; J2405; J3010; J7030

== ENCOUNTER 2021-05-23 20:38 | Emergency (ER) | payer MEDICARE, OTHER ==
[~2021-05-23] VITALS: Ht 172.7 cm; Wt 88.2 kg
[~2021-05-23 20:38] MED LIST changes: +CATAPRES 0.1MG0.1 MG PO
[2021-05-23 21:07] VITALS: TEMP 98
[2021-05-23 21:37] VITALS: BP 141/86; PULSE 81
== END 2021-05-23 21:40 | disposition home or self-care (01) ==
LOC: COL.ER 20:38
DX: L76.22 Postprocedural hemorrhage of skin and subcutaneous tissue following other procedure (principal)

== ENCOUNTER 2021-11-27 09:19 | Emergency (ER) | payer MEDICARE, OTHER ==
[~2021-11-27] VITALS: Ht 172.7 cm; Wt 90.9 kg
[2021-11-27 09:24] VITALS: TEMP 97.6
[2021-11-27 09:45] LABS: BASO % 0.2 % (0.0-2.0); EOS % 0.6 % (0.0-4.0); GRAN # 2.8 K/mm3 (1.4-6.5); GRAN % 51.6 % (42.2-75.2); HEMATOCRIT 42.5 % (42.0-52.0); HEMOGLOBIN 14.4 g/dl (13.5-18.0); LYMPH % 37.4 % (20.0-51.0); MEAN CELL VOLUME 100 fl (80.0-100.0); MEAN CORPUSCULAR HEMOGLOBIN 34 pg (27-31); MEAN CORPUSCULAR HGB CONC 34 g/dl (33.0-37.0); MEAN PLATELET VOLUME 11.9 fl (7.4-10.4); MONO # 0.5 K/mm3 (0.1-0.6); PLATELET COUNT 148 K/mm3 (130-400); RED BLOOD COUNT 4.27 M/mm3 (4.20-5.60); REDCELL DISTRIBUTION WIDTH-CV 12.7 % (11.5-14.5)
[2021-11-27 10:04] LABS: ALANINE AMINOTRANSFERASE 13 U/L (0-55); ALBUMIN 4.5 gm/dL (3.4-4.8); ALKALINE PHOSPHATASE 91 U/L (40-150); ANION GAP 11 mmol/L (7-16); AST,SGOT 16 U/L (5-34); BILIRUBIN,TOTAL 0.5 mg/dL (0.2-1.2); BLOOD UREA NITROGEN 16 mg/dL (8-26); CALCIUM 9.2 mg/dL (8.4-10.2); CARBON DIOXIDE 23 mmol/L (23-31); CHLORIDE 106 mmol/L (98-107); CREATININE, serum 0.89 mg/dL (0.72-1.25); GLUCOSE 99 mg/dL (70-99); POTASSIUM 4.6 mmol/L (3.5-4.5); SODIUM 140 mmol/L (136-145); TOTAL PROTEIN 7.8 gm/dL (6.2-8.1)
[2021-11-27 10:10] LABS: TROPONIN-I < 0.010 ng/mL (0.00-0.033)
[2021-11-27] MEDS ORDERED: PREDNISONE20 MG PO (10:51)
[2021-11-27 11:06] VITALS: BP 160/75; PULSE 80
== END 2021-11-27 11:06 | disposition home or self-care (01) ==
LOC: COL.ER 09:19
PROVIDERS: Emergency Medicine
DX: J44.1 Chronic obstructive pulmonary disease with (acute) exacerbation (principal); R60.0 Localized edema; Z87.891 Personal history of nicotine dependence; Z20.822 Contact with and (suspected) exposure to COVID-19
CPT/HCPCS: J2930

== ENCOUNTER → 2022-01-20 | Outpatient (CLI) | payer MEDICARE, OTHER | LOC: COL.RAD 07:31 | DX: R10.13 Epigastric pain (principal); R68.81 Early satiety | CPT/HCPCS: A9541 ==

== ENCOUNTER 2022-02-16 19:31 | Emergency (ER) | payer MEDICARE, OTHER ==
[~2022-02-16] VITALS: Ht 172.7 cm; Wt 88.2 kg
[2022-02-16 19:34] VITALS: TEMP 97.5
[2022-02-16 20:24] VITALS: BP 121/79; PULSE 70
== END 2022-02-16 20:28 | disposition home or self-care (01) ==
LOC: COL.ER 19:31
DX: R23.9 Unspecified skin changes (principal)

== ENCOUNTER → 2022-03-03 | Outpatient (CLI) | payer MEDICARE, OTHER | LOC: COL.RAD 07:05 | DX: R10.13 Epigastric pain (principal) | CPT/HCPCS: Q9967 ==

== ENCOUNTER → 2022-03-06 | Outpatient (CLI) | payer MEDICARE, OTHER ==
[2022-03-06 15:16] LABS: ALBUMIN 3.9 gm/dL (3.4-4.8); BILIRUBIN,TOTAL 0.4 mg/dL (0.2-1.2); CALCIUM 8.4 mg/dL (8.4-10.2); CREATININE, serum 1.36 mg/dL (0.72-1.25); POTASSIUM 4.3 mmol/L (3.5-4.5); TOTAL PROTEIN 6.5 gm/dL (6.2-8.1); TSH w REFLEX 0.569 uIU/mL (0.350-4.940)
== END ==
LOC: ZCOL.LAB 10:22
PROVIDERS: Nurse Practitioner
DX: R53.83 Other fatigue (principal)

== ENCOUNTER → 2022-03-08 | Outpatient (CLI) | payer MEDICARE, OTHER | LOC: COL.RAD 10:02 | DX: K82.8 Other specified diseases of gallbladder (principal); R52 Pain, unspecified ==

== ENCOUNTER → 2022-03-16 | Outpatient (CLI) | payer MEDICARE, OTHER | LOC: COL.RAD 09:46 | DX: R52 Pain, unspecified (principal) | CPT/HCPCS: A9537 ==

== ENCOUNTER 2022-12-07 11:14 | Inpatient (IN) | payer MEDICARE, OTHER ==
[~2022-12-07] VITALS: Ht 172.7 cm; Wt 92.3 kg
[~2022-12-07 11:14] MED LIST changes: +ALDACTONE 25MG25 M1 PO; +ENTRESTO 24 MG1 EACH; +ENTRESTO 24 MG1 EACH PO; +ENTRESTO 97 MG1 EACH PO; +OXYGEN NASAL.CANN; +VIAGRA50 M1; +ZYLOPRIM 100MG100 MG PO
[2022-12-07 12:10] VITALS: BP 104/42; PULSE 70; TEMP 98
--- NOTE | 2022-12-07 12:30 | NUR ---
Pt direct admitted to room 318 as direct admit at 1130. A/O x4. Intake and physical assessment completed. #20g started to LAC x1 attempt. Pt unaware of medications- will contact Dr. Short's office. Dr. Bishop notified of patient's arrival.
[2022-12-07 12:50] LABS: BASO % 0.4 % (0.0-2.0); EOS # 0.2 K/mm3 (0.0-0.7); EOS % 3.1 % (0.0-4.0); GRAN % 55.8 % (42.2-75.2); LYMPH # 1.7 K/mm3 (1.2-3.4); LYMPH % 31.7 % (20.0-51.0); MEAN CELL VOLUME 102 fl (80.0-100.0); MEAN CORPUSCULAR HEMOGLOBIN 35 pg (27-31); MEAN CORPUSCULAR HGB CONC 34 g/dl (33.0-37.0); MEAN PLATELET VOLUME 10.7 fl (7.4-10.4); MONO # 0.5 K/mm3 (0.1-0.6); MONO % 8.8 % (1.7-9.3); PLATELET COUNT 157 K/mm3 (130-400); RED BLOOD COUNT 3.48 M/mm3 (4.20-5.60); REDCELL DISTRIBUTION WIDTH-CV 12.9 % (11.5-14.5)
[2022-12-07 12:52] LABS: HEMATOCRIT 35.5 % (42.0-52.0)
[2022-12-07 13:04] LABS: ALBUMIN 3.6 gm/dL (3.4-4.8); BILIRUBIN,TOTAL 0.4 mg/dL (0.2-1.2); CALCIUM 8.8 mg/dL (8.4-10.2); CREATININE, serum 2.1 mg/dL (0.72-1.25); TOTAL PROTEIN 6.8 gm/dL (6.2-8.1)
[2022-12-07 13:08] LABS: POTASSIUM 6.1 mmol/L (3.5-4.5)
[2022-12-07 13:22] VITALS: BP 110/72; BP 97/73; PULSE 69
[2022-12-07 13:23] VITALS: BP 85/28
--- NOTE | 2022-12-07 13:56 | NUR ---
Pt appears to be resting in bed upon entering. Pt educated on telemetry and leads placed. Pt has no complaints at this time.
[2022-12-07 16:00] VITALS: BP 102/62; PULSE 66; TEMP 98.2
[2022-12-07] MEDS ORDERED: PRIL40 PO (16:03)
[2022-12-07] MEDS ORDERED: LEXAPRO 10MG10 MG PO (16:09)
[2022-12-07] MEDS ORDERED: NEURONTIN100 MG/CAP PO (16:14)
[2022-12-07] MEDS ORDERED: PAMELOR 10MG10 MG PO (16:17)
--- NOTE | 2022-12-07 16:30 | NUR ---
Physical therapy in room working with patient. IV fluids running per order, FSBS 63.
--- NOTE | 2022-12-07 17:05 | NUR ---
Pt in bed and appears to be watching tv. Pt educated on SCDs and applied bilaterally, pt tolerated well. Pt educated on need for UA sample and room set up with urinal and hats in the bathroom. Pt has no complaints at this time.
--- NOTE | 2022-12-07 18:36 | NUR ---
Pt in bed with family/friends at bedside and sitting up in bed with dinner tray. FSBS 83 and has been unable to produce urine but reminded of need for UA. Pt complains of some abdominal cramping but no pain or other complaints at this time.
--- NOTE | 2022-12-07 19:11 | NUR ---
Report given to KEYLA Zamora
[2022-12-07 19:54] VITALS: BP 120/79; PULSE 77; TEMP 98.2
[2022-12-07 20:27] LABS: CALCIUM 8.8 mg/dL (8.4-10.2); CREATININE, serum 1.86 mg/dL (0.72-1.25)
[2022-12-07 20:35] LABS: POTASSIUM 6.3 mmol/L (3.5-4.5)
[2022-12-07 20:57] LABS: URINE APPEARANCE Clear (CLEAR/HAZY); URINE BLOOD Negative (NEGATIVE); URINE COLOR Yellow (YELLOW); URINE GLUCOSE Negative (NEGATIVE); URINE KETONE Negative (NEGATIVE); URINE NITRATE Negative (NEGATIVE); URINE PROTEIN(semi-quant) Negative (NEGATIVE); URINE UROBILINOGEN 0.2 E.U/dL (0.2-1.0)
[2022-12-07 21:02] LABS: SQUAMOUS EPITHELIAL 0-2 /hpf (0-10); URINE BACTERIA None Seen /hpf (NONE SEEN); URINE RBC 0-2 /hpf (0-2); URINE WBC 0-2 /hpf (0-2)
--- NOTE | 2022-12-07 21:17 | NUR ---
ANA CRISTINA Patricia notified of potassium
[2022-12-07 21:18] LABS: COLLECTION METHOD CLEAN CATCH
--- NOTE | 2022-12-07 22:21 | NUR ---
Pt doing okay this evening. Pt not having any complaints of pain. Pt reported that he did fall back in August due to ice, otherwise reports being steady on his feet. Pt is aware to use his call light as he has SCDs on and is hooked up to IV pump receiving IV fluids. Discussed pt potassium level with him and the order for the new medication to help bring potassium down. Pt denies any other needs, call light within reach
[2022-12-07 23:33] VITALS: BP 139/67; PULSE 72; TEMP 98.5
--- NOTE | 2022-12-08 00:08 | NUR ---
New orders received earlier from ANA CRISTINA Patricia. Rainey catheter was placed per order. Pale yellow clear output noted. Pt tolerated well. Educated pt on new order for different IV fluids. Pt does have bed alarm on as a precaution. Pt is aware that if he needs to get up to use the call light. Pt denies any other needs, call light within reach, will continue to monitor
--- NOTE | 2022-12-08 04:47 | NUR ---
Pt did well the rest of the night. No complaints of pain and was able to get some sleep. No needs, call light remains within reach
[2022-12-08 04:55] VITALS: BP 106/66; PULSE 74; TEMP 98.1
[2022-12-08 06:44] LABS: BASO % 0.3 % (0.0-2.0); EOS # 0.2 K/mm3 (0.0-0.7); EOS % 2.3 % (0.0-4.0); GRAN # 4.2 K/mm3 (1.4-6.5); GRAN % 63.9 % (42.2-75.2); HEMOGLOBIN 10.7 g/dl (13.5-18.0); LYMPH # 1.6 K/mm3 (1.2-3.4); MEAN CELL VOLUME 104 fl (80.0-100.0); MEAN CORPUSCULAR HEMOGLOBIN 35 pg (27-31); MEAN CORPUSCULAR HGB CONC 33 g/dl (33.0-37.0); MONO # 0.6 K/mm3 (0.1-0.6); MONO % 9.2 % (1.7-9.3); PLATELET COUNT 131 K/mm3 (130-400); RED BLOOD COUNT 3.09 M/mm3 (4.20-5.60); REDCELL DISTRIBUTION WIDTH-CV 12.9 % (11.5-14.5)
[2022-12-08 07:01] LABS: CALCIUM 8.5 mg/dL (8.4-10.2); CREATININE, serum 1.49 mg/dL (0.72-1.25); POTASSIUM 4.7 mmol/L (3.5-4.5)
[2022-12-08 08:11] VITALS: BP 106/58; PULSE 80; TEMP 98.4
--- NOTE | 2022-12-08 09:08 | NUR ---
Initial visit; Patient thanked Roll Icer for looking in on him though he has no spiritual needs to address this morning.
--- NOTE | 2022-12-08 10:02 | NUR ---
Assessment complete. A/O x4. Reports 2/10 pain to abdomen. Declines need for pain medication. Denies nausea- tolerated breakfast. Denies chest pain, heart palpitations, or SOA. Sodium Bicarb infusing at 50ml/hr to LAC without s/s complications. Pt reports he has only had one firm bowel movement since receiving kayexolate yesterday afternoon.
--- NOTE | 2022-12-08 11:35 | NUR ---
SW met with the patient to discuss discharge plan. The patient lives in [place] with his , Vandana (ph#[phone]). He reports independence with ADLs and has a cane and walker available. The patient's PCP is Dr. Cha Short and he receives his medications from [facility] and from [facility]. The patient's DPOA-HC is in EMR and it designates his . The patient plans to return home with his upon discharge. No additional needs at this time. *Discharge plan: home with *
[2022-12-08 11:49] VITALS: BP 108/67; PULSE 67; TEMP 97.9
[2022-12-08 15:37] VITALS: BP 100/55; PULSE 66
[2022-12-08 16:13] VITALS: BP 87/56; PULSE 79; TEMP 97.9
--- NOTE | 2022-12-08 18:57 | NUR ---
Pt continues to have low blood pressure. Pt complaint with calling for OOB needs. Educated pt on dangling to side of bed for a couple minutes before standing due to hypotension. Verbalizes understanding. IVF of NS now infusing without complication. New IV started to RW by SN Gurpreet x1 attempt. IV site to LAC leaking and d/c'd. Denies pain or needs at this time.
[2022-12-08 19:53] VITALS: BP 93/53; PULSE 83; TEMP 98.3
[2022-12-09 00:41] VITALS: BP 114/58; PULSE 85; TEMP 98.4
[2022-12-09 04:23] VITALS: BP 114/71; PULSE 80; TEMP 98.3
[2022-12-09 06:33] LABS: BASO % 0.4 % (0.0-2.0); EOS # 0.2 K/mm3 (0.0-0.7); EOS % 2.8 % (0.0-4.0); GRAN # 3.5 K/mm3 (1.4-6.5); GRAN % 64.9 % (42.2-75.2); HEMATOCRIT 31.2 % (42.0-52.0); HEMOGLOBIN 10.4 g/dl (13.5-18.0); LYMPH # 1.3 K/mm3 (1.2-3.4); MEAN CELL VOLUME 102 fl (80.0-100.0); MEAN CORPUSCULAR HEMOGLOBIN 34 pg (27-31); MEAN CORPUSCULAR HGB CONC 33 g/dl (33.0-37.0); MEAN PLATELET VOLUME 11.1 fl (7.4-10.4); MONO # 0.5 K/mm3 (0.1-0.6); MONO % 8.7 % (1.7-9.3); PLATELET COUNT 119 K/mm3 (130-400); RED BLOOD COUNT 3.05 M/mm3 (4.20-5.60); REDCELL DISTRIBUTION WIDTH-CV 12.8 % (11.5-14.5)
[2022-12-09 06:46] LABS: CALCIUM 8.4 mg/dL (8.4-10.2); CREATININE, serum 1.22 mg/dL (0.72-1.25); POTASSIUM 3.9 mmol/L (3.5-4.5)
--- NOTE | 2022-12-09 07:55 | NUR ---
NURSING SHIFT ASSESSMENT COMPLETED. THE PATIENT DENIED NEEDS. NO PAIN REPORTED. THE PLAN OF CARE WAS DISCUSSED. CALL LIGHT WITHIN REACH. WILL MONITOR. BED ALARM ON.
[2022-12-09 08:23] VITALS: BP 107/84; PULSE 94; TEMP 98.1
--- NOTE | 2022-12-09 08:33 | NUR ---
Assessment complete. A/O x4. Denies nausea. Reports tenderness to epigastric area but denies pain. Reports "gout" pain in left great toe. SCD's in place to BUE. IV stie red and swollen- INT d/c'd with cath tip intact. Pt may be discharging home today- will check with provider- if pt staying will restart- if not staying won't restart.
[2022-12-09 09:30] VITALS: BP 103/65; PULSE 86
[2022-12-09] MEDS ORDERED: FLORINEF ACETA0.1 MG PO (10:09)
[2022-12-09] MEDS ORDERED: PREDNISONE20 MG PO ×3 (10:19→10:20)
[2022-12-09 11:17] VITALS: BP 102/62; PULSE 82; TEMP 98.5
--- NOTE | 2022-12-09 12:13 | NUR ---
Supervisor Beam Department rounds: Supervisor Beam Department attempted to offer visit; however someone from physical therapy was in room. No air brake rigger visit was offered or completed.
--- NOTE | 2022-12-09 15:07 | NUR ---
DISCHARGE INSTRUCTIONS REVIEWED WITH PATIENT - PT VERBALIZES UNDERSTANDING. INT DC'D EARLIER IN SHIFT. TELE DC'D. HULL REMOVED AT 1430 AND PT VOIDED 100ML SINCE REMOVAL. PT ESCORTED TO PRIVATE VEHICLE VIA WHEELCHAIR AND DISCHARGED HOME WITH .
== END 2022-12-09 15:07 | disposition home or self-care (01) | DRG 312 ==
LOC: MEDICAL 11:14
PROVIDERS: ADMIT Student in an Organized Health Care Education/Training Program
DX: I95.1 Orthostatic hypotension (principal); N17.9 Acute kidney failure, unspecified; I50.32 Chronic diastolic (congestive) heart failure; E87.20 Acidosis, unspecified; E87.5 Hyperkalemia; J44.9 Chronic obstructive pulmonary disease, unspecified; I11.0 Hypertensive heart disease with heart failure; K21.9 Gastro-esophageal reflux disease without esophagitis; I25.10 Atherosclerotic heart disease of native coronary artery without angina pectoris; E86.0 Dehydration; M10.9 Gout, unspecified; N40.0 Benign prostatic hyperplasia without lower urinary tract symptoms; E11.649 Type 2 diabetes mellitus with hypoglycemia without coma; Z96.651 Presence of right artificial knee joint; Z95.5 Presence of coronary angioplasty implant and graft; Z90.49 Acquired absence of other specified parts of digestive tract; Z87.891 Personal history of nicotine dependence; Z91.013 Allergy to seafood; Z23 Encounter for immunization
CPT/HCPCS: A9270; J0610; J1815; J7030; J7040